=== PATIENT | male | born 1985 | race Caucasian/White ===

== ENCOUNTER 2020-10-06 18:10 | Emergency (ER) | payer SELFPAY ==
[~2020-10-06] VITALS: Ht 182.9 cm; Wt 90.7 kg
[2020-10-06 18:20] VITALS: BP 140/75
--- NOTE | 2020-10-06 18:35 | NUR ---
SALINE LOCK ESTABLISHED, L AC 20G, AWAITING MD [facility]
--- NOTE | 2020-10-06 18:35 | NUR ---
BIB [facility], LEFT ER WAITING AND CALLED 911 INFRONT OF HOSPITAL PER EMS C/O ABDOMINAL PAIN /NAUSEA AND VOMITING. RATES PAIN 10/10. WILL CONTINUE TO MONITOR THE PATIENT.
--- NOTE | 2020-10-06 19:08 | NUR ---
IV removed. Catheter intact and site benign. Pressure and 4x4 applied to site. No bleeding noted.
== END 2020-10-06 19:21 | disposition left against medical advice (07) ==
LOC: ER 18:10
DX: R10.84 Generalized abdominal pain (principal); R11.2 Nausea with vomiting, unspecified
CPT/HCPCS: 36415

== ENCOUNTER 2020-11-27 09:53 | Emergency (ER) | payer OTHER ==
[~2020-11-27] VITALS: Ht 182.9 cm; Wt 90.7 kg
[2020-11-27 09:59] VITALS: BP 116/67
--- NOTE | 2020-11-27 10:02 | NUR ---
The patient bibs for feeling of right ear being clogged. Denies pain. Denies change in hearing. Will continue to monitor the patient.
[2020-11-27] MEDS ORDERED: CARB15DR12 EACH EAR (10:05)
--- NOTE | 2020-11-27 10:15 | NUR ---
Patient discharged to home in stable condition. Written and verbal after care instructions given. Patient verbalizes understanding of instruction.
== END 2020-11-27 10:16 | disposition home or self-care (01) ==
LOC: ER 09:57
DX: H61.21 Impacted cerumen, right ear (principal)

== ENCOUNTER 2023-01-20 17:16 | Emergency (ER) | payer OTHER ==
[~2023-01-20] VITALS: Ht 182.9 cm; Wt 102.1 kg
[~2023-01-20 17:16] MED LIST: CARB15DR12 EACH EAR
[2023-01-20] MEDS ORDERED: IBUPROFEN 600 MG TABLET PO ONE (18:00)
[2023-01-20] MEDS ORDERED: ACETAMINOPHEN ES 500 MG TABLET PO ONE (18:00)
[2023-01-20] MEDS ORDERED: KETOROLAC TROMETHAMINE INJ 60 MG/2 ML VIAL IM ONE (18:30)
[2023-01-20] MEDS ORDERED: IBUP-1953 PO (18:39)
[2023-01-20 18:53] VITALS: BP 125/93; TEMP 98.2; O2SAT 99
== END 2023-01-20 18:54 | disposition home or self-care (01) ==
LOC: ER 17:20
DX: S20.219A Contusion of unspecified front wall of thorax, initial encounter (principal); S00.81XA Abrasion of other part of head, initial encounter; M54.2 Cervicalgia; F17.200 Nicotine dependence, unspecified, uncomplicated; Z79.899 Other long term (current) drug therapy; V89.2XXA Person injured in unspecified motor-vehicle accident, traffic, initial encounter; Y93.89 Activity, other specified; Y92.89 Other specified places as the place of occurrence of the external cause; Y99.8 Other external cause status
CPT/HCPCS: 70450-TC; 70486-TC; 71045-TC; 72125-TC

== ENCOUNTER 2023-10-08 17:04 | Emergency (ER) | payer OTHER ==
[~2023-10-08] VITALS: Ht 185.4 cm; Wt 102.1 kg
[~2023-10-08 17:04] MED LIST changes: +IBUP-1953 PO
[2023-10-08 17:38] VITALS: BP 129/76; TEMP 98; O2SAT 97
[2023-10-08] MEDS ORDERED: TDAP [DIPH/PERTUSSIS/TET] 0.5 ML VIAL IM ONE (17:48)
[2023-10-08] MEDS ORDERED: AMOX/CLAVULANATE 875 MG TABLET ONE (17:48)
[2023-10-08] MEDS: TDAP [DIPH/PERTUSSIS/TET] 0.5 ML VIAL IM ONE (17:53)
[2023-10-08] MEDS: AMOX/CLAVULANATE 875 MG TABLET PO ONE (17:53)
[2023-10-08] MEDS ORDERED: AMOX-430 PO (17:57)
== END 2023-10-08 18:13 | disposition home or self-care (01) ==
LOC: ER 17:36
DX: S61.431A Puncture wound without foreign body of right hand, initial encounter (principal); F17.200 Nicotine dependence, unspecified, uncomplicated; W54.0XXA Bitten by dog, initial encounter; Y93.89 Activity, other specified; Y92.89 Other specified places as the place of occurrence of the external cause; Y99.8 Other external cause status
CPT/HCPCS: 73130-TC; 90715

== ENCOUNTER 2024-01-17 11:44 | Emergency (ER) | payer OTHER ==
[~2024-01-17 11:44] MED LIST changes: +AMOX-430 PO
== END 2024-01-17 12:23 | disposition left against medical advice (07) ==
LOC: ER 11:51
DX: R10.9 Unspecified abdominal pain (principal); Z53.21 Procedure and treatment not carried out due to patient leaving prior to being seen by health care provider

== ENCOUNTER 2024-01-17 12:51 | Emergency (ER) | payer OTHER ==
[~2024-01-17] VITALS: Ht 182.9 cm; Wt 97.5 kg
[2024-01-17 15:24] LABS: BASOPHILS % (AUTO) 0.5 % (0.0-2.0); EOSINOPHILS # (AUTO) 0.1 K/uL (0.0-0.7); EOSINOPHILS % (AUTO) 0.8 % (0.0-6.0); HEMATOCRIT 42 % (39-51); HEMOGLOBIN 13.7 g/dL (13.5-17.5); LYMPHOCYTES # (AUTO) 2.9 K/uL (0.8-4.8); LYMPHOCYTES % (AUTO) 37.9 % (20.0-44.0); MEAN CORPUSCULAR HEMOGLOBIN 28 PG (26.0-33.0); MEAN CORPUSCULAR HGB CONC 33 g/dl (31.0-36.0); MEAN CORPUSCULAR VOLUME 87 fL (80-96); MONOCYTES # (AUTO) 0.4 K/uL (0.1-1.30); MONOCYTES % (AUTO) 5.6 % (2.0-12.0); NEUTROPHILS # (AUTO) 4.2 K/uL (1.8-8.9); NEUTROPHILS % (AUTO) 55.2 % (43.0-81.0); PLATELET COUNT (AUTO) 224 K/uL (150-450); RED BLOOD CELL COUNT(AUTO) 4.86 MIL/uL (4.5-6.0); RED CELL DISTRIBUTION WIDTH 14.3 % (11.5-15.0); WHITE BLOOD COUNT (AUTO) 7.7 K/uL (4.3-11.0)
[2024-01-17 15:32] LABS: CALCIUM, SERUM 8.7 mg/dL (8.5-10.1); POTASSIUM 3.7 mmol/L (3.5-5.1)
[2024-01-17 15:44] LABS: BILIRUBIN,DIRECT 0.1 mg/dL (0.0-0.2); BILIRUBIN,TOTAL 0.6 mg/dL (0.2-1.0); TOTAL PROTEIN, SERUM 7.1 g/dL (6.4-8.2)
[2024-01-17 16:23] LABS: APPEARANCE,URINE Clear (CLEAR); BILIRUBIN,URINE Negative (NEGATIVE); BLOOD, URINE Negative Ery/uL (NEGATIVE); COLOR,URINE YELLOW (YELLOW); KETONES,URINE Negative (NEGATIVE); LEUKOCYTE ESTERASE ,URINE Negative (NEGATIVE); NITRITE, URINE Negative (NEGATIVE); PH,URINE 7.5 (5.0-8.0); PROTEIN,URINE Negative (NEGATIVE); UGLUCOSE Negative (NEGATIVE); UROBILINOGEN,URINE 0.2 EU/dL (0.2)
[2024-01-17 16:50] VITALS: BP 115/78; TEMP 97.8; O2SAT 99
== END 2024-01-17 16:51 | disposition home or self-care (01) ==
LOC: ER 12:52
DX: R10.31 Right lower quadrant pain (principal); F17.200 Nicotine dependence, unspecified, uncomplicated; F11.10 Opioid abuse, uncomplicated; Z87.442 Personal history of urinary calculi
CPT/HCPCS: 36415; 80048-TC; 80076-TC; 83690-TC; 85025-TC